=== PATIENT | male | born 1990 | race Caucasian/White ===

== ENCOUNTER 2021-10-29 23:46 | Emergency (ER) | payer SELFPAY ==
[~2021-10-29] VITALS: Ht 167.6 cm; Wt 91.0 kg
[2021-10-30 01:06] LABS: BASOPHILS % 0.7 % (0.0-2.0); HEMATOCRIT. 46.5 % (42.0-52.0); HEMOGLOBIN. 15.7 g/dL (14.0-18.0); LYMPHOCYTES % 44.3 % (20.0-50.0); MEAN CORPUSCULAR HEMOGLOBIN 30.9 pg (28.0-32.0); MEAN CORPUSCULAR VOLUME 91.2 fL (80.0-94.0); MONOCYTES % 8.1 % (2.0-8.0); NEUTROPHILS % 44.9 % (40.0-76.0); PLATELET 313 x1000/uL (130-400); RED CELL DISTRIBUTION WIDTH 12.8 % (11.6-14.6)
[2021-10-30 01:10] VITALS: BP 132/85
[2021-10-30 01:20] LABS: CHLORIDE 109 mEq/L (98-107)
[2021-10-30 01:28] LABS: ETHANOL BLOOD 271 mg/dL
== END 2021-10-30 01:10 | disposition left against medical advice (07) ==
LOC: ER 23:46
DX: R10.9 Unspecified abdominal pain (principal); V49.9XXA Car occupant (driver) (passenger) injured in unspecified traffic accident, initial encounter; Y93.89 Activity, other specified; Y92.89 Other specified places as the place of occurrence of the external cause; Y99.8 Other external cause status
CPT/HCPCS: 36415; 80053; 80320; 85025; 99283; G0480